=== PATIENT | male | born 1975 | race Two or more races ===

== ENCOUNTER 2024-03-11 13:51 | Emergency (ER) | payer MEDICAID, OTHER ==
[~2024-03-11] VITALS: Ht 180.3 cm; Wt 138.0 kg
[2024-03-11 16:04] VITALS: BP 137/94; PULSE 94; RESP 20; TEMP 98.1; O2SAT 97
[2024-03-11] MEDS ORDERED: IBUP-1455 PO (16:10)
== END 2024-03-11 16:17 | disposition home or self-care (01) ==
LOC: ER 13:51
DX: S93.402A Sprain of unspecified ligament of left ankle, initial encounter (principal); Z91.148 Patient's other noncompliance with medication regimen for other reason; X58.XXXA Exposure to other specified factors, initial encounter; Y93.89 Activity, other specified; Y92.89 Other specified places as the place of occurrence of the external cause; Y99.8 Other external cause status
CPT/HCPCS: 73610

== ENCOUNTER 2024-03-19 18:47 | Emergency (ER) | payer MEDICAID ==
[~2024-03-19] VITALS: Ht 180.3 cm; Wt 136.0 kg
[~2024-03-19 18:47] MED LIST: IBUP-1455 PO
[2024-03-19 19:09] VITALS: BP 149/97; PULSE 87; RESP 17; TEMP 98.8; O2SAT 98
[2024-03-19] MEDS ORDERED: INDO50CA82 PO (20:15)
[2024-03-19] MEDS ORDERED: PRED20TA2 PO (20:15)
[2024-03-19] MEDS: methylPREDNISolone SOD SUCC 125 MG/2 ML VL IM ONE (20:32)
[2024-03-19] MEDS: KETOROLAC TROMETH 60MG/2ML VIAL IM ONE (20:33)
== END 2024-03-19 21:41 | disposition home or self-care (01) ==
LOC: ER 18:47
DX: M77.42 Metatarsalgia, left foot (principal); J45.909 Unspecified asthma, uncomplicated; I10 Essential (primary) hypertension; Z79.1 Long term (current) use of non-steroidal anti-inflammatories (NSAID); Z79.52 Long term (current) use of systemic steroids
CPT/HCPCS: 36415; 84550; 96372; 99284; J1885; J2919